=== PATIENT | female | born 1990 | race African-American/Black ===

== ENCOUNTER 2018-07-03 11:03 | Outpatient (CLI) | payer MEDICAID | END 2018-07-03 11:04 | disposition home or self-care (01) | LOC: LAB 11:03 | PROVIDERS: ATTEND Obstetrics & Gynecology | DX: Z32.02 Encounter for pregnancy test, result negative (principal) | CPT/HCPCS: 36415; 84702 ==

== ENCOUNTER 2018-07-05 23:43 | Emergency (ER) | payer MEDICAID ==
[2018-07-05 23:57] VITALS: BP 111/72
[2018-07-06] MEDS ORDERED: PROPARACAINE 0.5% OPHTH DROPS 15 ML RIGHTEYE STA (00:27)
[2018-07-06] MEDS ORDERED: NEOMYCIN/POLYMYX/DEXAMETH OPHTH DROPS 5 ML RIGHTEYE STA (00:38)
--- NOTE | 2018-07-06 00:41 | ED Physician Documentation ---
PD HPI OPHTHO - Stated complaint Stated Complaint: EYE PX - Chief complaint Chief Complaint: Heent - History obtained from History obtained from: Patient, Family - History of Present Illness Timing - onset: Today Timing - duration: Minutes Timing - details: Abrupt onset, Still present Location: Right Quality / character: Throbbing, Sharp Associated symptoms: Redness, Tearing, FB sensation Contributing factors: Other (was flipping her hair around) Similar symptoms before: Has not had sx before Recently seen: Not recently seen - Additional information Additional information: 28-year-old female was flipping her hair around when she hit herself in the right eye. She has pain and a foreign body sensation in the right eye. Review of Systems Constitutional: denies: Fever Eyes: reports: Photophobia, Irritation. denies: Loss of vision, Decreased vision, Discharge Ears: denies: Ear pain Nose: denies: Rhinorrhea / runny nose, Congestion Respiratory: denies: Cough PD PAST MEDICAL HISTORY - Past Medical History Past Medical History: No - Past Surgical History Past Surgical History: No - Present Medications Home Medications: Ambulatory Orders Medication Instructions Recorded Confirmed Neomycin/Poly/Dex Ophth Drops 1 drops RIGHTEYE QID #1 bottle 07/06/18 [Maxitrol Ophth Drops] - Allergies Allergies/Adverse Reactions: Allergies Allergy/AdvReac Type Severity Reaction Status Date / Time No Known Drug Allergies Allergy Verified 07/05/18 23:47 - Social History Does the pt smoke?: Yes Smoking Status: Current every day smoker Does the pt drink ETOH?: Yes Does the pt have substance abuse?: No - Immunizations Immunizations are current?: Yes - POLST Patient has POLST: No PD ED PE NORMAL - Vitals Vital signs reviewed: Yes (normal ) - General General: Alert and oriented X 3, Well developed/nourished, Other (squinting ) - HEENT HEENT: Atraumatic, PERRL, EOMI, Other (There is injection to the sclera on the right and there is fluoroscien uptake on the right in a stife with 3 superficial scratches) - Neck Neck: Supple, no meningeal sign - Respiratory Respiratory: No respiratory distress - Derm Derm: Normal color, Warm and dry, No rash - Extremities Extremities: No deformity, No edema - Neuro Neuro: Alert and oriented X 3, 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 She has a lot of relief with use of the proparacaine eyedrops. She is administered Maxitrol eyedrops and we will refer her to a primary care doctor for follow-up. Departure - Departure Disposition: 01 Home, Self Care Clinical Impression: Corneal abrasion, right Qualifiers: Encounter type: initial encounter Qualified Code(s): S05.01XA - Injury of conjunctiva and corneal abrasion without foreign body, right eye, initial encounter Condition: Stable Instructions: ED Eye Injury Corneal Abrasion Follow-Up: [facility] [Provider Group] Prescriptions: Neomycin/Poly/Dex Ophth Drops [Maxitrol Ophth Drops] 1 drops RIGHTANGELAE QID #1 bottle
== END 2018-07-06 00:47 | disposition home or self-care (01) ==
LOC: ED 23:43
DX: S05.01XA Injury of conjunctiva and corneal abrasion without foreign body, right eye, initial encounter (principal); W22.8XXA Striking against or struck by other objects, initial encounter; F17.200 Nicotine dependence, unspecified, uncomplicated
CPT/HCPCS: 99283; J3490

== ENCOUNTER 2018-09-15 00:16 | Emergency (ER) | payer MEDICAID ==
[2018-09-15 00:22] VITALS: BP 135/70
--- NOTE | 2018-09-15 00:29 | ED Physician Documentation ---
History of Present Illness - Stated complaint Stated Complaint: BURNING SENSATION/NUMB LEGS - Chief complaint Chief Complaint: Ext Problem - History obtained from History obtained from: Patient - History of Present Illness Timing: Prior to arrival - Additonal information Additional information: Patient is a previously healthy 28-year-old female presenting with areas of discomfort and paresthesia to the left medial thigh and bottom of the left foot without inciting injury or trauma. Patient denies recent heavy lifting, strenuous exercise, or other activity that led to discomfort. Patient denies low back pain, pain radiating from back, decrease in strength or range of motion to the extremity.Patient also denies changes in skin such as erythema or rash.No other improving or worsening factors noted. Review of Systems Skin: denies: Rash Musculoskeletal: reports: Extremity pain PD PAST MEDICAL HISTORY - Past Medical History Past Medical History: No - Past Surgical History Past Surgical History: No - Present Medications Home Medications: Ambulatory Orders Medication Instructions Recorded Confirmed Neomycin/Poly/Dex Ophth Drops 1 drops RIGHTEYE QID #1 bottle 07/06/18 [Maxitrol Ophth Drops] - Allergies Allergies/Adverse Reactions: Allergies Allergy/AdvReac Type Severity Reaction Status Date / Time No Known Drug Allergies Allergy Verified 09/15/18 00:22 - Social History Does the pt smoke?: Yes Smoking Status: Current every day smoker Does the pt drink ETOH?: Yes Does the pt have substance abuse?: No - Immunizations Immunizations are current?: Yes - POLST Patient has POLST: No PD ED PE NORMAL - Vitals Vital signs reviewed: Yes - General General: Alert and oriented X 3, No acute distress, Well developed/nourished - Cardiac Cardiac: Strong equal pulses (Cap refill brisk) - Respiratory Respiratory: No respiratory distress - Derm Derm: Normal color, Warm and dry, No rash - Extremities Extremities: No deformity, No tenderness to palpate, No edema, Other (Negative straight leg test to the left leg. Left leg within normal limits with no bony tenderness, deformity, decrease in range of motion, strength, or sensation.No rash or other overlying skin changes except for callus to bottom of left foot otherwise uncomplicated.) - Neuro Neuro: Alert and oriented X 3, No motor deficit, No sensory deficit - Psych Psych: Normal mood, Normal affect Results - Vitals Vitals: Vital Signs - 24 hr 09/15/18 00:18 Temperature 36.1 C L Heart Rate 95 Respiratory 20 Rate Blood Pressure 135/70 H O2 Saturation 100 Oxygen O2 Source Room air PD MEDICAL DECISION MAKING - ED course Complexity details: considered differential, d/w patient, d/w family ED course: Most concerning for sciatica, however, given lack of low back pain, inciting injury or trauma, radiation of discomfort and otherwise dermatomal or lack thereof pattern, do not feel this is likely. Additionally, patient had negative straight leg test on the left side. Patient denied trauma that would raise high suspicion for bony abnormality such as fracture or dislocation. No bony tenderness or other issues on exam. No overlying skin changes such as joint swelling or erythema, rash, abrasions, ecchymosis. Do not find concerns for infection. Patient does have callus to bottom of left foot which could be contributing to discomfort or paresthesia. At this time, do not feel patient is experiencing an emergent condition that would require further intervention but discussed supportive cares, strict return precautions, and appropriate follow- up. Patient voiced understanding and is comfortable with discharge plan. Departure - Departure Disposition: 01 Home, Self Care Clinical Impression: Paresthesia Pain in extremity Qualifiers: Extremity pain location: lower extremity Laterality: left Qualified Code(s): M79.605 - Pain in left leg Condition: Good Instructions: ED Acute Pain [facility]O Follow-Up: your,doctor [Other] Comments: Recommend stretching, massage, ibuprofen/Tylenol and monitoring over the next several days. If symptoms persist or worsen, please follow-up with your primary care physician or return to the ED immediately. May also consider seeking advice from a sales training coordinator.
== END 2018-09-15 00:44 | disposition home or self-care (01) ==
LOC: ED 00:16
DX: R20.2 Paresthesia of skin (principal); M79.652 Pain in left thigh; M79.672 Pain in left foot; L84 Corns and callosities; F17.200 Nicotine dependence, unspecified, uncomplicated
CPT/HCPCS: 99282; 99283

== ENCOUNTER 2018-12-02 10:49 | Outpatient (CLI) | payer MEDICAID ==
--- NOTE | 2018-12-02 15:17 | XRAY Report ---
Reason: L KNEE PAIN Procedure Date: 12/02/2018 Accession Number: [id number] / [id number] Procedure: XRN - Knee 3 View LT CPT Code: FULL RESULT: EXAM: LEFT KNEE RADIOGRAPHY EXAM DATE: 12/02/2018 11:06 AM. CLINICAL HISTORY: L KNEE PAIN. COMPARISON: None. TECHNIQUE: 3 views. FINDINGS: Bones: Normal. No fractures or bone lesions. Joints: Normal. No effusion. No subluxations. Soft Tissues: Normal. No soft tissue swelling. IMPRESSION: Normal knee radiography. RADIA
== END 2018-12-02 10:50 | disposition home or self-care (01) ==
LOC: DI.N 10:49
PROVIDERS: ATTEND Physician Assistant Medical
DX: M25.562 Pain in left knee (principal)

== ENCOUNTER 2019-02-10 11:09 | Outpatient (CLI) | payer MEDICAID ==
[2019-02-10 16:29] VITALS: BP 102/78
--- NOTE | 2019-02-10 16:29 | SLEEP CARE CONSULTATION ---
Information from patient questionnaire entered by Gabi Davison. I have reviewed and concur with the information entered by Gabi Davison. This document represents the service I personally performed and the decisions made by me, Hailey Blanco MD, [facility]. History of Present Illness Reason for Visit: New patient Chief Complaint: reports: Insomnia, Excessive daytime sleepiness Usual bedtime: 0400 Time it takes to fall asleep: hours Snores at night: Yes Sleeps alone due to snoring: No Number of times waking at night: 3 Reasons for waking at night: reports: Pain (on side), Other (can't breath) Toss, Turn, or Twitch while sleeping: Yes Recalls having dreams: No Usually gets out of bed at: 0700 Feels refreshed in the morning: No Morning headache: Yes Sleepy or fatigued during the day: Yes Ever fallen asleep while driving: No Takes day naps: No Dreams during day naps: No Prior sleep studies: No Additional HPI information: I had the pleasure of seeing Ms. Pfeiffer today regarding the possibility of her having a sleep disorder. As you know, she is a 28 year old lady who complains of insomnia for the past 3 years. She moved here a year ago. The patient tells me that she normally goes into her bedroom around 8 pm to start watching TV. She then falls asleep in approximately 40 minutes. She then wakes up and stays up until about 4 am. She has been told that she snores loudly and irregularly at night. She has never been observed to stop breathing in her sleep. Her bed partner can still sleep in the same bed. He wears a CPAP. She can recall waking up on the average of 3 times during the night. Most of the time she wakes up because of pain. She has never awakened because of her own snoring, choking, or having to gasp for air. There is a lot of tossing and turning in her sleep. No somniloquy (sleep talking) or somnambulism (sleep walking). Generally there is no recollection of dreams. In the morning she usually gets up out of the bed around 7 a.m. not feeling refreshed nor rested. She gets up at that time to send her children to school. She usually does have a morning headache. During the day she complains of feeling sleepy and fatigued. Her score on [place] Sleepiness Scale is 13 out of 24. She has never fallen asleep while driving nor has had any accident due to sleepiness. She tries to take naps during the day but ends up unable to fall asleep. She denies having impaired concentration during the day. Subjective Initial [place] Sleepiness Scale score: 13 Social History The patient's occupation is not employed. Patient is Single and lives in [place]. Have you smoked in the past 12 months: Yes Cigarettes per day (20/pack): 5 Years of smokin Smoking Pack Years: 1.4 Alcohol use: No Caffeine use: Yes Caffeine amount and frequency: a lot Family History Family history of sleep disordered breathing: Yes Family Hx Sleep Apnea: Grandparent: Snoring Allergies and Home Medications Known drug allergies: No (none) Drug allergies reviewed: Yes (none) Home medication list reviewed: Yes (none) Review of Systems Weight loss over past 5 years: 35 Cardiovascular: denies: high blood pressure, palpitations, chest pain, irregular heart rate or pulse, leg or foot swelling, have to sleep sitting up, other Respiratory: denies: shortness of breath, wheeze, sputum production, chronic cough, other Gastrointestinal: denies: heartburn, difficulty swallowing, nausea, vomitting, diarrhea, abdominal pain, other Urinary: denies: incontinence, frequency, urgency, impotence, other Neurological: reports: headaches Psychiatric: denies: Attention Deficit Hyperactivity, anxiety, depression, mood disorder, claustrophobia, other Ear/Nose/Throat: denies: nasal congestion, sinus problems, nose bleeds, dry mouth/throat, hoarseness, injury to nose, tonsillectomy, wisdom teeth removed, other Endocrine: denies: thyroid disease, history of goiter, sluggishness, too hot or cold, excessive thirst, increased appetite, increased urination, unexplained weakness, other Musculoskeletal: reports: back pain, muscle pain or cramping Immunologic: denies: sneezing, rash, itching, allergies to food or environment, other Physical Exam Vital signs obtained and entered by: Dr. Blanco Blood Pressure: 102/78 Cuff size: regular Heart Rate: 80 O2 Saturation: 98 Height: 5 ft 5 in Weight: 215 lb Body Mass Index: 35.7 BMI Classification: Obesity Class 2 Neck circumference: 16 Mood/affect: normal HEENT: No craniofacial malformation Nostrils: patent to airflow Turbinates: normal Septum: midline Mouth and throat: narrow oropharynx Soft palate: long Hard palate: normal Uvula: normal Uvula visualization: 100% Mallampati Class I Tongue: enlarged in size with teeth bennett on lateral edges Tonsils: small Chin and jaw: normal size and position Neck: normal w/o lymphadenopathy or thyromegaly Heart: regular rate and rhythm Lungs: clear bilaterally Abdomen: soft, non-tender Extremities: no edema or clubbing Neurologic: intact, no focal deficits Impression and Plan IMPRESSION: 1. Obstructive Sleep Apnea-Hypopnea Syndrome, as suggested by history of loud and irregular snoring, frequent awakenings during the night, morning headache, unrefreshed sleep, and daytime hypersomnolence. Narrow oropharynx and obesity are common predisposing factors for obstructive sleep apnea-hypopnea syndrome. Pathophysiology of sleep-disordered breathing was discussed. I recommend proceeding to polysomnography to confirm the diagnosis and to assess severity. If she has significant sleep disordered breathing, a manual CPAP titration study will also be performed to find the optimal treatment pressure. I informed the patient of what the sleep studies involve and after some discussion, she agreed to proceed. 2. Insomnia, possibly a short sleep made worse by excessive time spent in bed of 11 hours a night (from 8 am to 7 am). She also has the incorrect thinking that she should try to sleep whenever possible. This, of course, ruins the circadian rhythm. She was advised to spend no more than 8 hours in bed. If she gets up at 7 am, she should not go to bed before 11 pm. She should not nap. She should not try to sleep outside of the 8 hour window regardless of how little sleep she gets in that window. Cigarette smoking near bedtime or during the night can be alerting. She should not smoke in the evening. Plan: 1. Schedule polysomnography. 2. Avoid long distance driving or when feeling sleepy. 3. Attempt to lose weight. 4. No cigarettes smoking near bedtime 5. Maintain a regular wake up time and spend no more than 8 hours in bed at night. Avoid naps. 6. Keep sleep diary (provided to the patient). I spent 100% of this 20 minute visit face to face with the patient with greater than 50% of this was spent time counseling the patient and coordination of care.
== END 2019-02-10 11:10 | disposition home or self-care (01) ==
LOC: SC 11:09
PROVIDERS: ATTEND Internal Medicine Pulmonary Disease
DX: G47.10 Hypersomnia, unspecified (principal); G47.8 Other sleep disorders; R06.83 Snoring; R51 Headache; G47.00 Insomnia, unspecified; E66.9 Obesity, unspecified; Z68.35 Body mass index [BMI] 35.0-35.9, adult
CPT/HCPCS: 99203; 99212

== ENCOUNTER → 2019-02-25 | Outpatient (CLI) | payer MEDICAID | LOC: SC 19:30 | PROVIDERS: ATTEND Internal Medicine Pulmonary Disease | DX: G47.10 Hypersomnia, unspecified (principal); R06.83 Snoring | CPT/HCPCS: 95806 ==

== ENCOUNTER 2019-04-01 10:55 | Outpatient (CLI) | payer MEDICAID ==
[2019-04-01 12:27] VITALS: BP 110/66
--- NOTE | 2019-04-01 12:27 | SLEEP CARE CONSULTATION ---
Information from patient questionnaire entered by Gabi Davison. I have reviewed and concur with the information entered by Gabi Davison. This document represents the service I personally performed and the decisions made by me, Leesa Dennis, RN, MSN, [employer]. History of Present Illness Prior sleep studies: Yes Year and Where: 02/2019 [facility] Sleep USP study HPI additional information: ANU JUNIOR returns with partner for follow up of the recently performed home sleep study and informed of the findings. The patient stated the time there was not data in middle of night was when she got to bathroom and did not return to bed to sleep for 1.5 hours. This occurs occasionally. I explained the pathophysiology behind obstructive sleep apnea. Patient does not have sleep apnea and was advised how weight gain could increase the risk of developing sleep apnea in the future. I strongly encouraged the patient to lose weight. However, she just learned she was and has an appointment tomorrow. Patient has moderate snoring and none noted on test. Snoring can be reduced by weight loss. Weight loss is best achieved with diet consult. Snoring can also be treated with an oral appliance from a dentist. Advised to check insurance coverage. In addition, an ENT evaluation can be do to see if other treatment is indicated. Patient counseled not drink alcohol less than 4 hours before bedtime as it can increase snoring and apnea. Patient does not drink alcohol. Patient was cautioned about risks of drowsy driving until sleepiness symptoms resolve. Patient denies drowsy driving. [facility] patient education on snoring and sleep apnea given and reviewed. Review of sleep history reflects that she implemented sleep practices advised by Dr. Blanco. She reports that by regulating her sleep wake time, eliminating naps and reducing time in bed improved her nighttime sleep. She is aware if she naps, she has difficulty sleeping at night. Subjective Initial [place] Sleepiness Scale score: 13 Current [place] Sleepiness Scale score: 9 Allergies and Home Medications Known drug allergies: Yes Home medication list reviewed: Yes Allergy and home medication list: vitamins Review of Systems Review of systems same as previous: Yes Physical Exam Blood Pressure: 110/66 Cuff size: long Heart Rate: 83 O2 Saturation: 98 Weight: 215 lb 9.6 oz Impression and Plan 1. Snoring but no significant sleep disordered breathing. Patient advised that often weight loss will reduce snoring as well as apnea risk. An oral appliance can also be used for snoring. This would require a dental consultation and may not be covered by insurance. Patient cautioned not to use other online appliances as can cause bite issues. An ENT consult can also be used to determine cause. However, since she just found out she was , she is advised to follow up with her PCP for weight guidelines while and then W[employer]ALKER. The BMI chart was reviewed and her current BMI and goals of normal weight. 2. Insomnia, patient feels it is better controlled with current sleep schedule and pleased with benefit. I emphasized keeping a regular sleep schedule, minimizing naps if needed to one hour and before 3 pm and to restrict time in bed to 8 hours. If continued problems with insomnia, contact this office. A sleep diary will be completed for further evaluation. * Attempt to lose weight after . * Avoid alcohol consumption near bedtime * The patient is cautioned about driving until sleepiness is completely resolved. * Return as needed. I spent 100% of this 30 minute visit face to face with the patient with greater than 50% of this was spent time counseling the patient and coordination of care.
== END 2019-04-01 10:56 | disposition home or self-care (01) ==
LOC: SC 10:55
PROVIDERS: ATTEND Nurse Practitioner Family
DX: G47.10 Hypersomnia, unspecified (principal); G47.8 Other sleep disorders; E66.9 Obesity, unspecified; Z68.35 Body mass index [BMI] 35.0-35.9, adult
CPT/HCPCS: 99212; 99214

== ENCOUNTER 2019-04-02 08:00 | Outpatient (CLI) | payer MEDICAID ==
[2019-04-02 19:30] LABS: BILIRUBIN,URINE NEGATIVE (NEGATIVE); GLUCOSE, URINE (UA) NEGATIVE (NEGATIVE); KETONES,URINE (UA) NEGATIVE (NEGATIVE); LEUKOCYTE ESTERASE, URINE MODERATE (NEGATIVE); NITRITE,URINE POSITIVE (NEGATIVE); OCCULT BLOOD,URINE NEGATIVE (NEGATIVE); PH,URINE 6.5 PH (5.0-7.5); PROTEIN,URINE TRACE mg/dL (NEGATIVE); UROBILINOGEN,URINE 0.2 (NORMAL) E.U./dL (NORMAL)
[2019-04-02 19:35] LABS: CLARITY,URINE CLOUDY (CLEAR)
[2019-04-02 19:45] LABS: AMORPHOUS SEDIMENT,UR Marked /LPF; BACTERIA,URINE Many /HPF (None Seen); RBC,URINE 0-5 /HPF (0-5); SQUAMOUS EPITHELIAL CELL,UR FEW Squamous (<= Few)
== END 2019-04-02 23:59 | disposition home or self-care (01) ==
LOC: LAB.R 08:00
PROVIDERS: ATTEND Physician Assistant Medical
DX: N39.0 Urinary tract infection, site not specified (principal)
CPT/HCPCS: 81001; 81003; 87086; 87181

== ENCOUNTER 2019-04-17 12:27 | Outpatient (CLI) | payer MEDICAID ==
--- NOTE | 2019-04-17 14:46 | Ultrasound Report ---
Reason: TEST POSITIVE Procedure Date: 04/17/2019 Accession Number: [id number] / [id number] Procedure: US - OB First Trimester CPT Code: Final Report FULL RESULT: EXAM: FIRST TRIMESTER OBSTETRIC ULTRASOUND (Less than 11 weeks) EXAM DATE: 04/17/2019 01:57 PM. CLINICAL HISTORY: test positive. LMP: 01/29/2019. COMPARISONS: None. TECHNIQUE: Transabdominal and transvaginal ultrasound examination with static image documentation. CLINICAL DATES: EGA 11weeks/1day with JM 11/05/2019 based on LMP. ASSESSMENT: Gestational Sac: Single intrauterine. Mean gestational sac diameter: 49.7 mm = 10 weeks/5 days. Embryo: CRL (crown-rump length) 37.0 mm = 10weeks/4days. Cardiac activity: 170 beats per minute. Yolk sac: 3.3 mm. Amniotic fluid: Not accurately assessed at this gestational age. Early placenta: Posterior placenta. Other: No perigestational fluid collection demonstrated. MATERNAL STRUCTURES: Uterus: Anteverted/Retroverted. Unremarkable. Cervix: Closed. Right Ovary/Adnexa: The ovary measures 2.4 x 1.8 x 1.9 cm, volume 4.3 cc. Unremarkable. Left Ovary/Adnexa: The ovary measures 2.1 x 2.8 x 2.2 cm, volume 6.6 cc. There is a left ovarian corpus luteum cyst, 1.6 x 1.4 x 1.4 cm. Free Fluid: None. Other: None. IMPRESSION: 1. Single viable intrauterine at EGA 10weeks/4days with JM 11/09/2019 based on crown-rump length, which is concordant with clinical dates. 2. Assigned dating is JM 11/05/2019 based on LMP. RADIA
== END 2019-04-17 12:28 | disposition home or self-care (01) ==
LOC: DI 12:27
PROVIDERS: ATTEND Nurse Practitioner Obstetrics & Gynecology
DX: Z32.01 Encounter for pregnancy test, result positive (principal)
CPT/HCPCS: 76801

== ENCOUNTER 2019-04-28 08:00 | Outpatient (CLI) | payer MEDICAID ==
[2019-04-29 14:34] LABS: MUDS CUTOFF CONCENTRATIONS CUTOFF CONC BELOW:
[2019-04-29 15:11] LABS: BILIRUBIN,URINE NEGATIVE (NEGATIVE); GLUCOSE, URINE (UA) NEGATIVE (NEGATIVE); KETONES,URINE (UA) NEGATIVE (NEGATIVE); LEUKOCYTE ESTERASE, URINE SMALL (NEGATIVE); NITRITE,URINE NEGATIVE (NEGATIVE); OCCULT BLOOD,URINE LARGE (NEGATIVE); PH,URINE 6.5 PH (5.0-7.5); PROTEIN,URINE TRACE mg/dL (NEGATIVE); UROBILINOGEN,URINE 0.2 (NORMAL) E.U./dL (NORMAL)
[2019-04-29 15:18] LABS: CLARITY,URINE CLOUDY (CLEAR)
[2019-04-29 15:29] LABS: AMORPHOUS SEDIMENT,UR Moderate /LPF; BACTERIA,URINE Rare /HPF (None Seen); CRYSTALS,URINE 11-25 Ca Oxalate /LPF; RBC,URINE TNTC /HPF (0-5); SQUAMOUS EPITHELIAL CELL,UR MANY Squamous (<= Few)
[2019-04-29 15:31] LABS: AMPHETAMINE SCREEN,URINE NEGATIVE (NEGATIVE); BENZODIAZEPINES SCREEN, URINE NEGATIVE (NEGATIVE); COCAINE SCREEN URINE NEGATIVE (NEGATIVE); METHADONE SCREEN, URINE NEGATIVE (NEGATIVE); METHAMPHETAMINES SCREEN, URINE NEGATIVE (NEGATIVE); OPIATE SCREEN, URINE NEGATIVE (NEGATIVE); OXYCODONE SCREEN, URINE NEGATIVE (NEGATIVE); PROPOXYPHENE SCREEN, URINE NEGATIVE (NEGATIVE); TRICYCLIC ANTIDEPRESSANT,URINE NEGATIVE (NEGATIVE)
[2019-04-29 19:36] LABS: TRICHOMONAS VAGINALIS DNA POSITIVE (NEGATIVE)
== END 2019-04-28 23:59 | disposition home or self-care (01) ==
LOC: LAB.R 08:00
PROVIDERS: ATTEND Obstetrics & Gynecology
DX: Z36.89 Encounter for other specified antenatal screening (principal)
CPT/HCPCS: 80306; 81001; 87086; 87491; 87591; 87661

== ENCOUNTER 2019-06-02 07:00 | Outpatient (CLI) | payer MEDICAID ==
[2019-06-03 21:55] LABS: TRICHOMONAS VAGINALIS DNA NEGATIVE (NEGATIVE)
== END 2019-06-02 23:59 | disposition home or self-care (01) ==
LOC: LAB.R 07:00
PROVIDERS: ATTEND Obstetrics & Gynecology
DX: Z11.3 Encounter for screening for infections with a predominantly sexual mode of transmission (principal)
CPT/HCPCS: 87491; 87591; 87661

== ENCOUNTER 2019-06-02 16:27 | Outpatient (CLI) | payer MEDICAID ==
[2019-06-02 17:17] LABS: HB2 TOTAL 11.4 g/dL; HEMOGLOBIN A1C 0.44 g/dL; HEMOGLOBIN A1C % 5.7 % (4.6-6.2)
[2019-06-02 17:35] LABS: THYROID STIMULATING HORMONE 1.13 uIU/mL (0.34-5.60)
[2019-06-02 17:37] LABS: FREE T4 (FREE THYROXINE) 0.73 ng/dL (0.58-1.64)
== END 2019-06-02 16:28 | disposition home or self-care (01) ==
LOC: LAB 16:27
PROVIDERS: ATTEND Obstetrics & Gynecology
DX: Z34.80 Encounter for supervision of other normal pregnancy, unspecified trimester (principal); Z36.0 Encounter for antenatal screening for chromosomal anomalies; Z36.89 Encounter for other specified antenatal screening
CPT/HCPCS: 36415; 81511; 81599; 82306; 83036; 84439; 84443

== ENCOUNTER 2019-06-19 10:35 | Outpatient (CLI) | payer MEDICAID ==
--- NOTE | 2019-06-22 15:28 | Ultrasound Report ---
Reason: SUPERVISION OF NORMAL SECOND TRIMESTER Procedure Date: 06/19/2019 Accession Number: [id number] / [id number] Procedure: US - OB Detailed Eval CPT Code: Final Report FULL RESULT: EXAM: COMPLETE OBSTETRICAL ULTRASOUND EXAM DATE: 06/19/2019 11:01 AM. CLINICAL HISTORY: anatomic survey. COMPARISON: OB FIRST TRIMESTER 04/17/2019 12:45 PM. TECHNIQUE: Real-time sonographic evaluation of the fetus performed by the anatomy professor. Multiple medical field representative static images were saved for review. DATING: Established EGA 19 weeks 4 days with JM 11/09/2019 based on first ultrasound as working due date. EGA 19 weeks 5 days with JM 11/08/2019 based on the current ultrasound. GENERAL EVALUATION Brown . Cardiac activity: 157 bpm. movement: Visualized. Presentation: Cephalic. Placenta: Posterior position. No evidence for previa. Umbilical cord: 3 vessel cord. Marginal, less than 1 cm from placental edge, placental cord origin. Amniotic fluid: Subjectively normal. MVP 3.4 cm with GONZALO 11.3 cm. BIOMETRY Bi-Parietal Diameter (BPD): 4.6 cm, 19 weeks 6 days Head Circumference (HC): 16.5 cm, 19 weeks 1 day Abdominal Circumference (AC): 15.1 cm, 20 weeks 2 days Femur Length (FL): 3.1 cm, 19 weeks 5 days Estimated Weight: 324 g, 69th percentile for 19 weeks 4 days. ANATOMY The right ventricular outflow tract is not adequately visualized. The left ventricular outflow tract appears unremarkable. The intracranial structures, profile, face/nose/lips, spine, 4 chamber heart, stomach, abdominal wall and cord insertion, diaphragm, kidneys, bladder, and extremities were visualized and demonstrate no abnormality. MATERNAL STRUCTURES Uterus: Unremarkable. Cervix: Long and closed. Transabdominal length 3.9 cm. Right ovary/adnexa: Unremarkable. Left ovary/adnexa: Unremarkable. Free fluid: None. IMPRESSION: 1. Brown live intrauterine with gestational age 19 weeks 4 days based on first ultrasound. 2. Estimated weight is within expected limits for assigned dating. 3. Marginal placental cord origin. Recommend follow-up ultrasound for growth assessment and to evaluate for progression to velamentous cord origin at 28-32 weeks gestational age. 4. Inadequate visualization of the right ventricular outflow tract. No anatomic abnormalities are detected at this time. RADIA
== END 2019-06-19 10:36 | disposition home or self-care (01) ==
LOC: DI 10:35
PROVIDERS: ATTEND Obstetrics & Gynecology
DX: Z34.82 Encounter for supervision of other normal pregnancy, second trimester (principal)
CPT/HCPCS: 76811

== ENCOUNTER 2019-06-30 14:26 | Outpatient (CLI) | payer MEDICAID ==
[2019-06-30 15:04] LABS: BASOPHILS % (AUTO) 0.1 %; EOSINOPHILS # (AUTO) 0.2 10^3/uL (0.0-0.7); EOSINOPHILS % (AUTO) 2.1 %; HGB - HEMOGLOBIN 11.2 g/dL (12.0-16.0); LYMPHOCYTES # (AUTO) 2.5 10^3/uL (1.5-3.5); LYMPHOCYTES % (AUTO) 32.4 %; MEAN CORPUSCULAR HGB CONC 33.9 g/dL (32.0-36.0); MEAN CORPUSCULAR VOLUME 91.4 fL (81.0-99.0); MEAN PLATELET VOLUME 9.1 fL (7.9-10.8); MONOCYTES # (AUTO) 0.4 10^3/uL (0.0-1.0); MONOCYTES % (AUTO) 4.8 %; NEUTROPHILS # (AUTO) 4.7 10^3/uL (1.5-6.6); PLT - PLATELET COUNT 230 10^3/uL (130-450); RED BLOOD COUNT 3.61 10^6/uL (4.20-5.40); RED CELL DISTRIBUTION WIDTH 13.2 % (12.0-15.0); WHITE BLOOD COUNT 7.8 x10^3/uL (4.8-10.8)
[2019-07-01 12:25] LABS: HEPATITIS C ANTIBODY NON-REACTIVE (NON-REACTIVE)
[2019-07-01 12:26] LABS: HEPATITIS B SURFACE ANTIGEN NON-REACTIVE (NON-REACTIVE)
[2019-07-01 14:15] LABS: HIV AG/AB 4TH GEN NON-REACTIVE (NON-REACTIVE)
== END 2019-06-30 14:27 | disposition home or self-care (01) ==
LOC: LAB 14:26
PROVIDERS: ATTEND Obstetrics & Gynecology
DX: Z36.89 Encounter for other specified antenatal screening (principal)
CPT/HCPCS: 36415; 81599; 85025; 86592; 86762; 86803; 86850; 86900; 86901; 87340; 87389

== ENCOUNTER 2019-07-16 13:12 | Outpatient (CLI) | payer MEDICAID ==
--- NOTE | 2019-07-16 15:58 | Ultrasound Report ---
Reason: SUPER OF NORMAL PREG Procedure Date: 07/16/2019 Accession Number: [id number] / [id number] Procedure: US - OB F/U or Repeat CPT Code: Final Report FULL RESULT: EXAM: FOLLOW-UP OBSTETRICAL ULTRASOUND EXAM DATE: 07/16/2019 02:19 PM. CLINICAL HISTORY: Follow-up incomplete anatomy screen: RVOT, marginal placental origin COMPARISON: None. TECHNIQUE: Real-time sonographic evaluation of the fetus performed by the licensed nurse practitioner. Additional transvaginal imaging to more accurately evaluate cervical length/placental position/etc. Multiple litigation claim representative static images were saved for review. DATING: Established EGA 23 weeks 3 days with JM 11/09/2019 based on provider stated due date. GENERAL EVALUATION Brown . Cardiac activity: 153 bpm. movement: Visualized. Presentation: Cephalic. Placenta: Posterior position. Amniotic fluid: Normal. GONZALO 12.4 cm. MVP 4.8 cm. Placental cord origin is 1.5 cm from placental edge ANATOMY RVOT is normal IMPRESSION: 1. Brown live intrauterine with gestational age 23 weeks 3 days based on provider stated due date. 2. RVOT is normal 3. Eccentric placental cord origin which is 1.5 cm from the placental edge. (Previously marginal less than 1 cm from edge) RADIA
== END 2019-07-16 13:13 | disposition home or self-care (01) ==
LOC: DI 13:12
PROVIDERS: ATTEND Obstetrics & Gynecology
DX: Z34.82 Encounter for supervision of other normal pregnancy, second trimester (principal)
CPT/HCPCS: 76816

== ENCOUNTER 2019-08-08 12:44 | Outpatient (CLI) | payer MEDICAID ==
[2019-08-08 13:15] LABS: BILIRUBIN,URINE NEGATIVE (NEGATIVE); GLUCOSE, URINE (UA) NEGATIVE (NEGATIVE); KETONES,URINE (UA) NEGATIVE (NEGATIVE); LEUKOCYTE ESTERASE, URINE NEGATIVE (NEGATIVE); NITRITE,URINE NEGATIVE (NEGATIVE); OCCULT BLOOD,URINE NEGATIVE (NEGATIVE); PROTEIN,URINE NEGATIVE (NEGATIVE); UROBILINOGEN,URINE 0.2 (NORMAL) E.U./dL (NORMAL)
[2019-08-08 13:18] LABS: CLARITY,URINE CLEAR (CLEAR)
[2019-08-08 13:19] LABS: BACTERIA,URINE None Seen /HPF (None Seen); RBC,URINE None Seen /HPF (0-5); SQUAMOUS EPITHELIAL CELL,UR NONE SEEN (<= Few)
[2019-08-08 13:22] VITALS: BP 112/73
--- NOTE | 2019-08-08 13:58 | PROVIDER PROGRESS NOTE ---
- HPI Chief Complaint: Other (29yo at 26 6/7 weeks by LMP c/w first trimester scan presents with c/o sharp/pulling periumbilical pain. Noticed it today while at the store moving around. Self-limiting, lasting 10 seconds, has occurred a few times today. No contractions, no fluid leak or bleeding. Normal activity. Has continued to have nausea, occasional vomiting throughout . No fever. Regular daily BM, no diarrhea or constipation. PN History/ x2, laparoscopic salpingectomy for ectopic Preg complicated by maternal obesity, prev , anemia, nausea/vomiting, tobacco use, sleep apnea) Current : Current EDU 11/08/19 Gestation 26 Weeks and 6 Days 4 Para 2 Vital Signs Temperature 97.5 F L 08/08/19 13:15 Heart Rate 97 08/08/19 13:15 Respiratory Rate 18 08/08/19 13:15 Blood Pressure 112/73 08/08/19 13:15 O2 Saturation 100 08/08/19 13:15 Temperature 97.5 F L 08/08/19 13:15 Heart Rate 97 08/08/19 13:15 Respiratory Rate 18 08/08/19 13:15 Blood Pressure 112/73 08/08/19 13:15 O2 Saturation 100 08/08/19 13:15 - Procedures OB Procedure Performed: NST Diagnosis/Indication for NST: Other (Abdominal pain; see HPI) Service Date of procedure: 08/08/19 Procedure Details: US also done; Single active fetus in oblique lie w head in RLQ. Posterior fundal placenta. Normal amniotic fluid volume. Abd soft, non-tender. No contractions. Unable to elicit pain. Normal bowel sounds No CVA tenderness. UA sl concentrated sp gr 1.025, otherwise normal - Plan Plan: 29yo at 26 6/7 weeks with pain likely secondary to adhesions from previous surgery. No evidence of other intrauterine or intraabdominal process. Discussed posture, exercises and belly bra to alleviate this and minor low back pain. Glucola and CBC due now, will do both while here. Reassured. F/U as scheduled with primary OB provider.
[2019-08-08 15:03] LABS: BASOPHILS # (AUTO) 0.1 10^3/uL (0.0-0.1); BASOPHILS % (AUTO) 0.5 %; EOSINOPHILS # (AUTO) 0.2 10^3/uL (0.0-0.7); EOSINOPHILS % (AUTO) 1.5 %; HGB - HEMOGLOBIN 10.1 g/dL (12.0-16.0); LYMPHOCYTES # (AUTO) 2.2 10^3/uL (1.5-3.5); LYMPHOCYTES % (AUTO) 18.9 %; MEAN CORPUSCULAR HEMOGLOBIN 30.7 pg (27.0-31.0); MEAN CORPUSCULAR HGB CONC 32.7 g/dL (32.0-36.0); MEAN CORPUSCULAR VOLUME 93.9 fL (81.0-99.0); MEAN PLATELET VOLUME 8.4 fL (7.9-10.8); MONOCYTES # (AUTO) 0.7 10^3/uL (0.0-1.0); MONOCYTES % (AUTO) 5.9 %; NEUTROPHILS # (AUTO) 8.4 10^3/uL (1.5-6.6); NEUTROPHILS % (AUTO) 72.1 %; PLT - PLATELET COUNT 273 10^3/uL (130-450); RED BLOOD COUNT 3.29 10^6/uL (4.20-5.40); RED CELL DISTRIBUTION WIDTH 13.5 % (12.0-15.0); WHITE BLOOD COUNT 11.6 x10^3/uL (4.8-10.8)
== END 2019-08-08 15:00 | disposition home or self-care (01) ==
LOC: WFO 12:44 → FBP 12:52 → WFO 15:00
PROVIDERS: ATTEND Obstetrics & Gynecology
DX: O99.89 Other specified diseases and conditions complicating pregnancy, childbirth and the puerperium (principal); R10.815 Periumbilic abdominal tenderness; M54.5 Low back pain; O99.212 Obesity complicating pregnancy, second trimester; O34.219 Maternal care for unspecified type scar from previous cesarean delivery; O99.332 Smoking (tobacco) complicating pregnancy, second trimester; O21.2 Late vomiting of pregnancy; O99.012 Anemia complicating pregnancy, second trimester; O99.352 Diseases of the nervous system complicating pregnancy, second trimester; G47.30 Sleep apnea, unspecified; Z3A.26 26 weeks gestation of pregnancy
CPT/HCPCS: 81001; 82731; 82950; 85025; 87086; 99214

== ENCOUNTER 2019-10-13 11:42 | Outpatient (CLI) | payer MEDICAID ==
[2019-10-13 21:52] LABS: TRICHOMONAS VAGINALIS DNA NEGATIVE (NEGATIVE)
== END 2019-10-13 23:59 | disposition home or self-care (01) ==
LOC: LAB.R 11:42
PROVIDERS: ATTEND Obstetrics & Gynecology
DX: Z36.85 Encounter for antenatal screening for Streptococcus B (principal)
CPT/HCPCS: 87491; 87591; 87661; 87797

== ENCOUNTER 2019-10-27 04:14 | Inpatient (IN) | payer MEDICAID ==
--- NOTE | 2019-10-27 04:35 | HISTORY & PHYSICAL EXAMINATION ---
Admit History - Visit Reason Visit Reason: Contractions (29yo at 38w22d by LMP c/w first trimester scan who presents with trickle then gush of clear fluid at 0300 today. Also notes painful contractions q4-6 minutes. No bleeding. No n/v/f/c or dysuria. Reports normal activity.), Membranes rupture - : 4 Parity: 2 Premature: 0 Ectopic: 1 : 0 Care: positive: [facility] Risk/History: positive: Other (Previous x2, anemia, obesity, tobacco/marijuana use) Complications This : positive: Other (Previous x2, anemia, obesity, tobacco/marijuana use, excessive weight gain ~80 pounds. Trich infection treated) Smoking Status: Current every day smoker - Mother's Labs Mother's Blood Type: positive: B Mother's RH: positive: Positive (HepB/HIV/RPR/HepC NR Varicella non-immune Glucola 100 GC/chlam neg) GBS: positive: Group B Strep Positive Rubella Status: positive: Immune Meds/Allgy - Home Medications Home Medications: Ambulatory Orders Medication Instructions Recorded Confirmed Pnv No.121/Iron/Folic Acid 1 each PO DAILY 06/28/19 10/27/19 [ Multivitamin Tablet] Ferrous Gluconate [Iron] 240 mg PO DAILY 10/27/19 10/27/19 - Allergies Allergies/Adverse Reactions: Allergies Allergy/AdvReac Type Severity Reaction Status Date / Time No Known Drug Allergies Allergy Verified 06/28/19 11:28 Review of Systems - All Other Systems All Other Systems: reports: Other (Negative except as noted) Physical - Abdominal Exam Contraction Frequency (min/apart): q4-6 Contraction Intensity: positive: Moderate to strong Uterine Resting Tone: positive: Soft - Monitoring Strip Review: positive: Category I - Presentation Presentation: positive: Vertex (by bedside scan, anterior fundal placenta) - Vaginal Exam Membranes: positive: Membranes ruptured Dilation (in cm): visually closed, long Plan for Labor - Plan For Labor Plan for Labor: 29yo at 38w2d GBS+, B+ presents with PROM, a few contractions q4-6, moderate to strong, h/o x2. Vtx by scan Start ampi for GBS complicated by morbid obesity and excessive weight gain, anemia, tobacco/marijuana use, trich infection Plan CBC, T&S Pre-op abx Proceed with repeat LTCS Exam - Exam Vital Signs: Vital Signs (72 hours) 10/27/19 04:36 Temperature 98.4 F Heart Rate [ 98 Monitoring electrodes] Respiratory 18 Rate Blood Pressure 123/76 [Left Brachial artery] O2 Saturation 100 General: Alert, Oriented x3, Cooperative Lungs: Clear to auscultation Cardiovascular: Regular rate, No murmurs Abdomen: Normal bowel sounds, Soft (gravid, obese. Well healed low transverse scar) Extremities: No clubbing (1+ edema) Skin: No rashes Neurological: Normal speech Psych/Mental Status: Mental status NL
[2019-10-27] MEDS ORDERED: fentaNYL 100 MCG/2 ML VIAL IVP PRN (04:40)
[2019-10-27] MEDS ORDERED: OXYTOCIN 10 UNIT/ML VIAL IM PRN (04:40)
[2019-10-27] MEDS ORDERED: AMPICILLIN 2 GM in SODIUM CHLORIDE 0.9% MINIBAG 100 ML IV ONE (04:40)
[2019-10-27] MEDS ORDERED: ONDANSETRON 4 MG/2 ML VIAL IVP PRN (04:40)
[2019-10-27] MEDS ORDERED: OXYTOCIN/SODIUM CHLORIDE 500 ML IV PRN ×2 (04:40)
[2019-10-27] MEDS ORDERED: miSOPROStoL 200 MCG TABLET BC PRN (04:40)
[2019-10-27] MEDS ORDERED: SODIUM CHLORIDE FLUSH 0.9% 10 ML SYRINGE IVP PRN ×2 (04:40→07:47)
[2019-10-27] MEDS ORDERED: TRANEXAMIC ACID 1,000 MG in SODIUM CHLORIDE 0.9% 100ML 100 ML IV PRN (04:40)
[2019-10-27] MEDS ORDERED: LIDOCAINE-MPF 1% 30 ML VIAL ID PRN (04:40)
[2019-10-27] MEDS ORDERED: METHYLERGONOVINE 0.2 MG/ML VIAL IM PRN (04:40)
[2019-10-27] MEDS ORDERED: CARBOPROST TROMETHAMINE 250 MCG/ML AMP IM PRN (04:40)
[2019-10-27] MEDS ORDERED: LACTATED RINGERS 1,000 ML IV ONE ×3 (04:43→07:32)
[2019-10-27] MEDS ORDERED: CITRIC ACID/SODIUM CITRATE 15 ML UDC PO ONE ×2 (04:43→05:28)
[2019-10-27] MEDS ORDERED: ceFAZolin 3 GM in SODIUM CHLORIDE 0.9% 100ML 100 ML IV ONE (04:44)
[2019-10-27] MEDS ORDERED: AZITHROMYCIN INJ 500 MG in SODIUM CHLORIDE 0.9% 250 ML IV ONE (04:46)
[2019-10-27 04:49] LABS: BASOPHILS % (AUTO) 0.4 %; EOSINOPHILS # (AUTO) 0.1 10^3/uL (0.0-0.7); EOSINOPHILS % (AUTO) 1.2 %; HGB - HEMOGLOBIN 11.7 g/dL (12.0-16.0); LYMPHOCYTES # (AUTO) 2.3 10^3/uL (1.5-3.5); LYMPHOCYTES % (AUTO) 21.3 %; MEAN CORPUSCULAR HEMOGLOBIN 31.1 pg (27.0-31.0); MEAN CORPUSCULAR HGB CONC 33.6 g/dL (32.0-36.0); MEAN CORPUSCULAR VOLUME 92.6 fL (81.0-99.0); MEAN PLATELET VOLUME 9.4 fL (7.9-10.8); MONOCYTES # (AUTO) 0.6 10^3/uL (0.0-1.0); MONOCYTES % (AUTO) 5.7 %; NEUTROPHILS # (AUTO) 7.5 10^3/uL (1.5-6.6); NEUTROPHILS % (AUTO) 70.7 %; PLT - PLATELET COUNT 271 10^3/uL (130-450); RED BLOOD COUNT 3.76 10^6/uL (4.20-5.40); RED CELL DISTRIBUTION WIDTH 14.6 % (12.0-15.0); WHITE BLOOD COUNT 10.6 x10^3/uL (4.8-10.8)
[2019-10-27] MEDS ORDERED: LACTATED RINGERS 1,000 ML IV SCH (05:00)
--- NOTE | 2019-10-27 05:09 | ANESTHESIA ---
Pre-Anesthesia VS, & Labs - Diagnosis PG - Procedure Vital Signs: Temp Pulse Resp BP Pulse Ox 36.9 C 98 18 123/76 100 10/27/19 04:36 10/27/19 04:36 10/27/19 04:36 10/27/19 04:36 10/27/19 04:36 Height 5 ft 5 in Weight (kg) 113.398 kg Body Mass Index 36.6 - NPO >8 hours - Is Patient ?: Yes - Lab Results Current Lab Results: Laboratory Tests 10/27/19 04:34: WBC 10.6, RBC 3.76 L, Hgb 11.7 L, Hct 34.8 L, MCV 92.6, MCH 31.1 H, MCHC 33.6, RDW 14.6, Plt Count 271, MPV 9.4, Neut # (Auto) 7.5 H, Lymph # (Auto) 2.3, [place] # (Auto) 0.6, Eos # (Auto) 0.1, Baso # (Auto) 0.0, Absolute Nucleated RBC 0.00, Nucleated RBC % 0.0 Lab results reviewed: Yes Fish Bones: 10/27/19 04:34 Home Medications and Allergies Home Medications: Ambulatory Orders Ferrous Gluconate [Iron] 240 mg PO DAILY 10/27/19 Active Medications Carboprost Tromethamine (Hemabate) 250 mcg IM Q15M PRN PRN Reason: Step 4: Hemorrhage protocol Stop: 10/29/19 04:41 Fentanyl (Fentanyl) 50 mcg IVP Q1H PRN PRN Reason: PAIN Lactated Ringer's (Lr) 1,000 mls @ 999 mls/hr IV .Q1H1M VIKAS Oxytocin/Sodium Chloride (Pitocin/Sodium Chloride) 500 mls @ 999 mls/hr IV PRN PRN; Protocol PRN Reason: POST- HEMORR PREVENTION Stop: 10/29/19 04:41 Tranexamic Acid 1,000 mg/ (Sodium Chloride) 110 mls @ 660 mls/hr IV ONCE PRN PRN Reason: EBL >1200mL and within 3hr Stop: 10/29/19 04:41 Ampicillin Sodium 2 gm/ Sodium (Chloride) 100 mls @ 100 mls/hr IV ONCE ONE Stop: 10/27/19 05:39 Cefazolin Sodium 3 gm/ Sodium (Chloride) 100 mls @ 200 mls/hr IV ONCE ONE Stop: 10/27/19 05:13 Azithromycin 500 mg/ Sodium (Chloride) 250 mls @ 250 mls/hr IV ONCE ONE Stop: 10/27/19 05:45 Lidocaine HCl (Xylocaine-Mpf 1% Vial) 30 ml ID ONCE PRN PRN Reason: PERINEAL REPAIR Stop: 10/29/19 04:41 Methylergonovine Maleate (Methergine Inj) 0.2 mg IM ONCE PRN PRN Reason: Step 2: Hemorrhage protocol Stop: 10/29/19 04:41 Misoprostol (Cytotec) 800 mcg BC ONCE PRN PRN Reason: Step 3: Hemorrhage protocol Stop: 10/29/19 04:41 Ondansetron HCl (Zofran Inj) 4 mg IVP Q4H PRN PRN Reason: Nausea / Vomiting Oxytocin (Pitocin) 10 unit IM ONCE PRN PRN Reason: Step one: If no IV access Stop: 10/29/19 04:41 Sodium Chloride (Normal Saline Flush 0.9%) 10 ml IVP PRN PRN PRN Reason: NEEDED PER PROVIDER ORDERS Sodium Chloride (Normal Saline Flush 0.9%) 10 ml IVP 0100,0900,1700 VIKAS Pnv No.121/Iron/Folic Acid [ Multivitamin Tablet] 1 each PO DAILY 06/28/19 Ferrous Gluconate [Iron] 240 mg PO DAILY 10/27/19 Allergies/Adverse Reactions: Allergies Allergy/AdvReac Type Severity Reaction Status Date / Time No Known Drug Allergies Allergy Verified 06/28/19 11:28 Anes History & Medical History - Anesthetic History Anesthesia Complications: reports: No previous complications Family history of Anesthesia Complications: Denies Family history of Malignant Hyperthermia: Denies - Medical History Cardiovascular: reports: None Pulmonary: reports: None Gastrointestinal: reports: None Urinary: reports: None Neuro: reports: None Musculoskeletal: reports: None Endocrine/Autoimmune: reports: None Blood Disorders: reports: None Skin: reports: None Smoking Status: Current every day smoker - Surgical History Gynecologic: section - Obstetrical History : 4 Parity: 2 Events: positive: Other (Previous x2, anemia, obesity, tobacco/marijuana use) Complications: positive: Other (Previous x2, anemia, obesity, tobacco/marijuana use, excessive weight gain ~80 pounds. Trich infection treated) Exam General: Alert, Oriented x3, Cooperative Dental: WNL Mouth Openin Fingerbreadth Neck Mobility: Normal Mallampati classification: II Thyromental Distance: 4-6 cm Respiratory: Lungs clear Cardiovascular: Regular rate Plan Anesthesia Type: General, Spinal Consent for Procedure(s) Verified and Reviewed: Yes Code Status: Attempt Resuscitation ASA classification: 2-Mild systemic disease Is this case an emergency?: Yes
--- NOTE | 2019-10-27 05:30 | OPERATIVE REPORT ---
Operative Report - General Admit Date: 10/27/19 Procedure Date: 10/27/19 Planned Procedure: Repeat LTCS Pre-Op Diagnosis: at 38w2d with PROM, previous x2 Procedure Performed: Repeat LTCS Post Op Diagnosis: Same - Procedure Note Primary Surgeon: Aileen Ashraf MD Secondary Surgeon: Adelita Posey CNM Anesthesia Provider: Sai Saez CRNA Anesthesia Technique: Local, Spinal Pathology: Cord blood IV Fluids (mL): 1,400 Estimated Blood Loss (mL): 600 Urine Output (mL): 150 Indications: Previous with PROM in early labor Findings: 3126gm male fetus delivered from vertex presentation at 06:29, apgars 9/9. Surgically absent right tube, otherwise normal uterus, adnexae. Complications: None - Other Other Information/Narrative: Patient was brought to the operating room where spinal anesthesia was induced. A urinary garzon and SCD's were placed. She received ancef 3g and azithromycin 500mg. Her vagina was prepped. She was placed in the supine position with leftward tilt her pannus was taped up and she was prepped. Ioban was placed and then she was draped in usual fashion. 20cc 1% lidocaine local was injected prior to making the incision. A low transverse incision was made along the old scar and this was carried to fascia with the Bovie. The fascia was incised and this was extended laterally. The upper margin was elevated and dissected free from the underlying rectus with the Bovie. The same was done at the inferior margin. The rectus muscle was bluntly divided and the peritoneum entered at the upper margin of the opening. This was extended with direct visualization of the bladder. The tissues were noted to be dense with obliteration of tissue planes. The Brennon retractor was placed. The uterus was carefully opened at the midline in the lower segment. This was extended laterally bluntly in a cephalo-caudad manner. The head was elevated into the hysterotomy and delivered using fundal pressure. The cord was clamped and cut and the baby handed off the field. Spontaneous, vigorous cry was noted. The margins of the hysterotomy were clamped. The placenta was delivered intact with traction. A right uterine artery laceration was noted and this was secured with 0 vicryl in a figure of eight fashion. The incision was closed first with 0 vicryl in a running locked fashion, then in a horizontal imbricating fashion with the same suture. Good hemostasis was observed. The right tube was surgically absent, the adnexae were otherwise normal. The retractor was removed. The rectus was reapproximated with several 2-0 vicryl sutures in a figure of eight fashion. The fascia was closed with two 0 vicryl sutures in continuous fashion tied in the middle. The subcutaneous tissues were closed with 3-0 vicryl in an running fashion. A subcuticular stitch of 4-0 monocryl was placed and the skin was closed with dermabond. Steristrips were placed. I performed the entire procedure with the necessary assistance of Adelita Posey.
--- NOTE | 2019-10-27 05:34 | DELIVERY NOTE ---
Delivery Note - Labor Labor: positive: Spontaneous - Delivery Method Delivery Method: positive: Repeat - Presentation Presentation: positive: Vertex, DEBORA - right occiput anterior - Nuchal Cord Nuchal Cord: positive: None - Anesthetic Anesthetic Type: - Amniotic Fluid Description Amniotic Fluid Description: positive: Clear - Delivery Outcome Delivery Outcome: positive: Livebirth - [place] sex: positive: Male : 3126gm, apgars 9/9 - Cord Cord: positive: 3 vessels - Placenta Placenta: positive: Intact, Spontaneous, Expressed - Estimated Blood Loss Estimated Blood Loss (in cc): 600 - Post Delivery Events Post Delivery Events: positive: No post delivery events - Delivery Comments (Free Text/Narrative) Delivery Comments (Free Text/Narrative): 3126gm male infant apgars 9/9 delivered from vertex at 06:29 on 10/27/19. Otherwise see operative report.
[2019-10-27] MEDS: LACTATED RINGERS 1,000 ML IV ONE (06:09)
[2019-10-27] MEDS: LIDOCAINE 1%-EPI 1:100000 20 ML MDV ONE ×2 (06:09→06:15)
[2019-10-27] MEDS: KETOROLAC 30 MG/ML VIAL IVP SCH ×3 (07:03→20:19)
[2019-10-27] MEDS ORDERED: SIMETHICONE CHEW 80 MG TABLET PO PRN (07:47)
[2019-10-27] MEDS ORDERED: diphenhydrAMINE 25 MG CAPSULE PO PRN (07:47)
[2019-10-27] MEDS ORDERED: diphenhydrAMINE INJ 50 MG/ML VIAL IVP PRN (07:47)
[2019-10-27] MEDS ORDERED: ACETAMINOPHEN 500 MG TABLET PO SCH (08:00)
[2019-10-27] MEDS: LACTATED RINGERS 1,000 ML IV SCH ×4 (08:50→17:18)
[2019-10-27] MEDS ORDERED: FERRIC GLUCONATE IV ONE (09:00)
[2019-10-27] MEDS ORDERED: SODIUM CHLORIDE 0.9% IV ONE (09:00)
[2019-10-27] MEDS ORDERED: SODIUM CHLORIDE FLUSH 0.9% 10 ML SYRINGE IVP SCH (09:00)
[2019-10-27] MEDS: ACETAMINOPHEN 325 MG TABLET PO SCH ×2 (12:08→20:20)
[2019-10-27] MEDS: DOCUSATE SODIUM 100 MG CAPSULE PO SCH (12:08)
[2019-10-27] MEDS: NICOTINE 14 MG PATCH TOP SCH (12:33)
--- NOTE | 2019-10-27 12:45 | PROVIDER PROGRESS NOTE ---
Subjective - Prog Note Date Prog Note Date: 10/27/19 Prog Note Time: 12:41 - Subjective Subjective: Post op check. Very comfortable. No further nausea. Scant lochia. Starting to breastfeed. Not ambulating yet. VSS afeb UO borderline 30-60cc/hr first 3 hours; last hour 175cc clear urine Abd soft, non-tender. Fundus firm below umbilicus. Incision D&I, steris in place. EXT/ SCDs in place A/P Stable. UO improving with increased fluids. Continue to monitor. Start lovenox for DVT prophylaxis. Continue routine postop care. Objective - Vital Signs/Intake & Output Vital Signs: Vital Signs x48h Temp Pulse Pulse Resp BP BP Pulse Ox 10/27/19 12:00 96.4 F L 90 18 110/67 99 10/27/19 11:31 84 16 113/67 100 10/27/19 11:00 83 16 114/71 99 10/27/19 10:35 96.3 F L 81 18 109/72 100 10/27/19 10:15 82 100 10/27/19 10:00 70 16 106/56 L 100 10/27/19 09:45 70 18 110/68 97 10/27/19 09:32 68 16 108/71 98 10/27/19 09:17 82 20 115/66 99 10/27/19 09:02 73 18 113/74 99 10/27/19 08:47 82 16 105/59 L 100 10/27/19 08:32 91 16 110/52 L 100 10/27/19 08:17 97.5 F L 79 12 106/63 99 10/27/19 08:05 97.7 F 82 17 105/68 97 10/27/19 08:00 97.7 F 92 16 111/52 L 97 10/27/19 07:55 97.2 F L 94 15 105/67 100 10/27/19 07:50 89 18 127/102 H 100 10/27/19 07:45 86 14 117/60 99 10/27/19 07:40 90 14 125/77 100 10/27/19 07:34 96.8 F L 86 14 127/70 99 Intake & Output: Intake & Output 10/24/19 10/25/19 10/26/19 10/27/19 23:59 23:59 23:59 23:59 Intake Total 7127.667 Output Total 355 Balance 1736.667 - Lab Results Fish Bones: 10/27/19 04:34 Other Labs: Lab Results x24hrs 10/27/19 10/27/19 Range/Units 04:34 04:34 WBC 10.6 (4.8-10.8) x10^3/uL RBC 3.76 L (4.20-5.40) 10^6/uL Hgb 11.7 L (12.0-16.0) g/dL Hct 34.8 L (37.0-47.0) % MCV 92.6 (81.0-99.0) fL MCH 31.1 H (27.0-31.0) pg MCHC 33.6 (32.0-36.0) g/dL RDW 14.6 (12.0-15.0) % Plt Count 271 (130-450) 10^3/uL MPV 9.4 (7.9-10.8) fL Neut # (Auto) 7.5 H (1.5-6.6) 10^3/uL Lymph # (Auto) 2.3 (1.5-3.5) 10^3/uL [place] # (Auto) 0.6 (0.0-1.0) 10^3/uL Eos # (Auto) 0.1 (0.0-0.7) 10^3/uL Baso # (Auto) 0.0 (0.0-0.1) 10^3/uL Absolute Nucleated RBC 0.00 x10^3/uL Nucleated RBC % 0.0 /100WBC Blood Type B POSITIVE Antibody Screen NEGATIVE
[2019-10-27] MEDS: SODIUM CHLORIDE FLUSH 0.9% 10 ML SYRINGE IVP SCH (14:03)
[2019-10-27] MEDS: ENOXAPARIN 40 MG/0.4 ML SYRINGE SUBQ SCH (14:03)
[2019-10-27] MEDS ORDERED: KETOROLAC 30 MG/ML VIAL IVP ONE (16:52)
[2019-10-27] MEDS ORDERED: MIDAZOLAM 2 MG/2 ML VIAL IVP ONE (16:52)
[2019-10-27] MEDS ORDERED: fentaNYL 100 MCG/2 ML VIAL IVP ONE (16:52)
[2019-10-27] MEDS ORDERED: MORPHINE PF 5 MG/10 ML AMP EP ONE (16:52)
[2019-10-27] MEDS ORDERED: ONDANSETRON 4 MG/2 ML VIAL IVP ONE (16:52)
[2019-10-28] MEDS: KETOROLAC 30 MG/ML VIAL IVP SCH (02:42)
[2019-10-28] MEDS: ACETAMINOPHEN 325 MG TABLET PO SCH ×3 (03:15→19:49)
--- NOTE | 2019-10-28 07:37 | PROVIDER PROGRESS NOTE ---
Subjective - Prog Note Date Prog Note Date: 10/28/19 Prog Note Time: 07:36 - Subjective Subjective: POD 1 Very comfortable, pain well controlled. Normal lochia. Ambulating, voiding, , tolerating reg diet. VSS afeb Abd soft, non-tender. Fundus firm below umbilicus. Incision D&I Extr with tr bipedal edema. Hgb 9.5 A/P Stable, doing well. Hgb 9.5 as expected. Received one dose iron sucrose, will give a second dose Continue routine care Counselled re contraceptive options; considering Nexplanon. Continue nicotine patch. Counseled to stop smoking Objective - Vital Signs/Intake & Output Vital Signs: Vital Signs x48h Temp Pulse Resp BP Pulse Ox 10/28/19 04:42 98.6 F 80 16 113/67 10/28/19 00:02 98.2 F 93 20 107/62 98 Intake & Output: Intake & Output 10/25/19 10/26/19 10/27/19 10/28/19 23:59 23:59 23:59 23:59 Intake Total 5985.000 500 Output Total 2830 800 Balance 3155.000 -300 - Lab Results Fish Bones: 10/28/19 05:25 Other Labs: Lab Results x24hrs 10/28/19 Range/Units 05:25 Hgb 9.5 L (12.0-16.0) g/dL
[2019-10-28] MEDS ORDERED: SODIUM CHLORIDE FLUSH 0.9% 10 ML SYRINGE IVP PRN (07:41)
[2019-10-28] MEDS: DOCUSATE SODIUM 100 MG CAPSULE PO SCH ×2 (08:08→20:55)
[2019-10-28] MEDS: oxyCODONE 5 MG TABLET PO PRN ×4 (08:08→20:55)
[2019-10-28] MEDS: SODIUM CHLORIDE FLUSH 0.9% 10 ML SYRINGE IVP SCH (08:14)
[2019-10-28] MEDS: ENOXAPARIN 40 MG/0.4 ML SYRINGE SUBQ SCH (10:07)
[2019-10-28] MEDS: IBUPROFEN 600 MG TABLET PO SCH ×3 (10:07→23:29)
[2019-10-28] MEDS: NICOTINE 14 MG PATCH TOP SCH (11:48)
[2019-10-29] MEDS: IBUPROFEN 600 MG TABLET PO SCH (06:25)
[2019-10-29] MEDS: oxyCODONE 5 MG TABLET PO PRN (06:25)
[2019-10-29] MEDS: ACETAMINOPHEN 325 MG TABLET PO SCH (08:18)
[2019-10-29] MEDS: ENOXAPARIN 40 MG/0.4 ML SYRINGE SUBQ SCH (08:19)
[2019-10-29] MEDS: DOCUSATE SODIUM 100 MG CAPSULE PO SCH (08:19)
[2019-10-29] MEDS: NICOTINE 14 MG PATCH TOP SCH (08:19)
[2019-10-29 08:27] VITALS: BP 123/72
[2019-10-29] MEDS ORDERED: SODIUM CHLORIDE 0.9% IV ONE (08:30)
[2019-10-29] MEDS ORDERED: FERRIC GLUCONATE IV ONE (08:30)
--- NOTE | 2019-10-29 09:56 | PROVIDER PROGRESS NOTE ---
Subjective - General Admit Date: 10/27/19 Procedure Date: 10/27/19 Post Op Days: 2 - Review of Systems Wound/Incisions: positive: Healing well, Dressing dry and intact General: positive: No symptoms, Fever All Other Systems: positive: Other (Negative except as noted) Objective - Patient Data Reviewed Vital Signs: Yes Vital Signs: Vital Signs x48h Temp Pulse Resp BP Pulse Ox 10/29/19 08:27 36.8 C 90 16 123/72 99 10/29/19 03:50 36.7 C 91 16 133/81 H Weight: Weight 10/27/19 10/28/19 10/29/19 23:59 23:59 23:59 Weight (kg) 113.398 kg Intake & Output: Intake and Output Totals x24h 10/27/19 10/28/19 10/29/19 23:59 23:59 23:59 Intake Total 5985.000 800 620 Output Total 2830 800 Balance 3155.000 0 620 - Lab Results Lab Results: 10/28/19 05:25 - Current Medications Current Medications: Current Medications Generic Name Dose Route Start Last Admin Trade Name Freq PRN Reason Stop Dose Admin Acetaminophen 650 mg 10/27/19 12:00 10/29/19 08:18 Tylenol PO 650 mg Q8H VIKAS Administration Docusate Sodium 100 mg 10/27/19 09:00 10/29/19 08:19 Colace 100mg Capsule PO 100 mg BID VIKAS Administration Enoxaparin Sodium 40 mg 10/27/19 14:00 10/29/19 08:19 Lovenox SUBQ 40 mg DAILY VIKAS Administration Fentanyl 50 mcg 10/27/19 04:40 10/27/19 05:16 Fentanyl IVP 50 mcg Q1H PRN Administration PAIN Lactated Ringer's 1,000 mls @ 150 mls/hr 10/27/19 08:00 10/27/19 21:31 Lr IV Infused .Q6H40M VIKAS Infusion Ibuprofen 600 mg 10/28/19 08:00 10/29/19 06:25 Motrin PO 600 mg Q6H VIKAS Administration Nicotine 1 patch 10/27/19 09:00 10/29/19 08:19 Nicoderm TOP 1 patch DAILY VIKAS Administration Ondansetron HCl 4 mg 10/27/19 04:40 10/27/19 05:17 Zofran Inj IVP 4 mg Q4H PRN Administration Nausea / Vomiting Oxycodone HCl 5 mg 10/27/19 07:47 10/29/19 06:25 Roxicodone PO 5 mg Q4HR PRN Administration PAIN Simethicone 80 mg 10/27/19 07:47 10/27/19 12:08 Mylicon PO 80 mg TID PRN Administration Gas Sodium Chloride 10 ml 10/27/19 09:00 10/28/19 08:14 Normal Saline Flush 0.9% IVP 10 ml 0100,0900,1700 [facility] Administration - Physical Exam Wound/Incisions: positive: Healing well, Dressing dry and intact General Appearance: positive: No acute distress, Alert Respiratory: positive: Chest non-tender, No respiratory distress, Breath sounds nml Cardiovascular: positive: Regular rate & rhythm, No murmur, No gallop Abdomen: positive: Non-tender, Nml bowel sounds Back: negative: CVA tenderness (R), CVA tenderness (L) Extremities: negative: Calf tenderness, Tiny's sign/cords Impression/Plan - Problem List Problem List: POD #2 excellent progress. Send home RTC one week Discharge medications oxycodone 5 mg # 15 Motrin 800 mg Colace 100 mg
--- NOTE | 2019-10-29 09:57 | Discharge Plan ---
Discharge Plan Problem Reviewed?: Yes Disposition: Home, Self Care Condition: Good Diet: Regular Activity Restrictions: pelvic rest 6 weeks Shower Restrictions: No Driving Restrictions: Yes (no driving while taking narcotics) No Smoking: If you smoke, Please STOP! Call for help.
--- NOTE | 2019-10-29 11:15 | Labor Flowsheet ---
Labor Flowsheet Datetime Report Generated by CPN: 10/29/2019 11:15 Datetime: 10/27/2019 05:35 PATIENT CARE Patient Position/Activity: to OR via bed Datetime: 10/27/2019 05:29 UTERINE ACTIVITY Monitor Mode: External Frequency (min): 3-4 Quality: Moderate Duration (sec): 70-100 Pattern: Normal: <= 5 Contractions in 10 Minutes Resting Tone (Palpate): Relaxed Contraction Comments: some relief after fentanyl ASSESSMENT A Monitor Mode: External US FHR Baseline Rate : 145 Variability: Moderate 6-25 bpm Accelerations: 15X15 Decelerations: Variable Category: Category II Comments: variables with contractions to 130's Datetime: 10/27/2019 05:28 VITAL SIGNS Pulse: 105 SpO2 (%): 100
--- NOTE | 2019-11-05 13:30 | DISCHARGE SUMMARY ---
Physician: Akash Hoffman MD DATE OF ADMISSION: 10/27/2019 DATE OF DISCHARGE: 10/29/2019 ADMITTING DIAGNOSES 1. A 29-year-old 4, para 2 at 38.2 weeks. 2. Spontaneous rupture of membranes. 3. Previous section x2. DISCHARGE DIAGNOSES 1. A 29-year-old 4, para 2 at 38.2 weeks. 2. Spontaneous rupture of membranes. 3. Previous section x2. PROCEDURES: Repeat low transverse section. PRESENTING HISTORY: Patient is a 29-year-old G4, P2-0-1-2 female at 38.2 weeks. She presented with a gush of fluid vaginally. She also noted contractions every 4-6 minutes. She has had 2 previous sections. Her laboratories to be group B strep positive. She presents with expectation of repeat section. LABORATORIES: On admission, hemoglobin was 11.7, hematocrit was 38.4. White count was 10.6, platelets were 271. First day postop she fell to 9.9 grams. HOSPITAL COURSE: The patient was admitted, at which time she was noted to be ruptured. For this reason, she was taken back for repeat low transverse section. At that time, she was noted to have a live male weighing 3126 grams with Apgars of 9 and 9. Her course was unremarkable. Her diet was advanced. She was placed on oral pain medications. She was discharged home on the second day . DISCHARGE MEDICATIONS 1. Oxycodone 5 mg #15. 2. Motrin 800 mg. 3. Colace 100 mg. She is instructed to follow up in the clinic. TD: 11/05/2019 13:01 [facility]
== END 2019-10-29 11:00 | disposition home or self-care (01) | DRG 788 ==
LOC: WFO 04:14 → FBP 04:15 → WFO 04:39 → FBP 04:40
PROVIDERS: ADMIT Obstetrics & Gynecology; ATTEND Obstetrics & Gynecology
PROC: 10D00Z1 Extraction of Products of Conception, Low, Open Approach (ICD-10-PCS; principal; 2019-10-27 05:30)
DX: O34.211 Maternal care for low transverse scar from previous cesarean delivery (principal); O99.824 Streptococcus B carrier state complicating childbirth; O99.02 Anemia complicating childbirth; D64.9 Anemia, unspecified; O99.334 Smoking (tobacco) complicating childbirth; F17.200 Nicotine dependence, unspecified, uncomplicated; O99.214 Obesity complicating childbirth; E66.9 Obesity, unspecified; Z3A.38 38 weeks gestation of pregnancy; Z37.0 Single live birth; Z90.79 Acquired absence of other genital organ(s)
CPT/HCPCS: 36415; 85018; 85025; 86850; 86900; 86901; 99213; A9270; J1650; J2916; J7120

== ENCOUNTER 2020-01-26 22:51 | Emergency (ER) | payer MEDICAID ==
[2020-01-26 23:01] VITALS: BP 142/88
== END 2020-01-27 00:05 | disposition left against medical advice (07) ==
LOC: ED 22:51
DX: Z53.21 Procedure and treatment not carried out due to patient leaving prior to being seen by health care provider (principal)

== ENCOUNTER 2022-02-18 18:31 | Emergency (ER) | payer MEDICAID ==
[2022-02-18 18:46] VITALS: BP 116/61
[2022-02-18 19:03] LABS: BILIRUBIN,URINE NEGATIVE (NEGATIVE); GLUCOSE, URINE (UA) NEGATIVE (NEGATIVE); KETONES,URINE (UA) NEGATIVE (NEGATIVE); LEUKOCYTE ESTERASE, URINE MODERATE (NEGATIVE); NITRITE,URINE NEGATIVE (NEGATIVE); OCCULT BLOOD,URINE TRACE-INTA (NEGATIVE); PROTEIN,URINE TRACE mg/dL (NEGATIVE); UROBILINOGEN,URINE 0.2 (NORMAL) E.U./dL (NORMAL)
[2022-02-18 19:05] LABS: BASOPHILS % (AUTO) 0.1 %; EOSINOPHILS % (AUTO) 0.3 %; HCT - HEMATOCRIT 38.1 % (37.0-47.0); HGB - HEMOGLOBIN 12.5 g/dL (12.0-16.0); LYMPHOCYTES # (AUTO) 1.5 10^3/uL (1.5-3.5); LYMPHOCYTES % (AUTO) 13.7 %; MEAN CORPUSCULAR HEMOGLOBIN 29.8 pg (27.0-31.0); MEAN CORPUSCULAR HGB CONC 32.8 g/dL (32.0-36.0); MEAN CORPUSCULAR VOLUME 90.7 fL (81.0-99.0); MEAN PLATELET VOLUME 8.9 fL (7.9-10.8); MONOCYTES # (AUTO) 0.4 10^3/uL (0.0-1.0); MONOCYTES % (AUTO) 4.1 %; NEUTROPHILS # (AUTO) 8.7 10^3/uL (1.5-6.6); NEUTROPHILS % (AUTO) 81.5 %; PLT - PLATELET COUNT 316 10^3/uL (130-450); RED CELL DISTRIBUTION WIDTH 14.3 % (12.0-15.0); WHITE BLOOD COUNT 10.7 x10^3/uL (4.8-10.8)
[2022-02-18 19:06] LABS: CLARITY,URINE CLOUDY (CLEAR); HCG UR QUAL NEGATIVE
[2022-02-18 19:17] LABS: BILIRUBIN,TOTAL 0.7 mg/dL (0.2-1.0); CALCIUM 9.5 mg/dL (8.5-10.3); CREATININE 0.8 mg/dL (0.4-1.0); TOTAL PROTEIN 7.9 g/dL (6.7-8.2)
[2022-02-18 19:19] LABS: BACTERIA,URINE Many /HPF (None Seen); MUCUS,URINE Marked Strands; RBC,URINE 0-5 /HPF (0-5); SQUAMOUS EPITHELIAL CELL,UR FEW Squamous (<= Few)
[2022-02-18] MEDS ORDERED: SULFAMETH/TRIMETH DS 800/160 MG TABLET PO STA (19:45)
[2022-02-18] MEDS ORDERED: ONDANSETRON ODT 4 MG TABLET TL STA (19:45)
[2022-02-18] MEDS ORDERED: ONDANSETRON ODT 4 MG Prepack 2 TL PRN (19:46)
--- NOTE | 2022-02-18 19:48 | ED Physician Documentation ---
PD HPI NVD - Stated complaint Stated Complaint: VOMITING,SHAKES - Chief complaint Chief Complaint: Abd Pain - History obtained from History obtained from: Patient - Additonal information Additional information: The patient comes to the emergency department chief complaint of nausea and vomiting earlier today. The patient states she did drink alcohol heavily the night before and woke up around 2:00 this morning with severe nausea and vomiting. She states she also felt shaky. The patient states that this lasted through most of the day and finally resolved when she took a shower this evening. The patient had a couple of episodes of diarrhea, as well. The patient states that she has not been directly exposed to anybody that she knows of who has gastroenteritis. No one else with the same food as her is sick. The patient states that she is feeling quite a bit better now. She is not known to be but wonders if she might be. No fevers or chills. No upper respiratory symptoms. No other complaints at this time. Review of Systems Ten Systems: 10 systems reviewed and negative Constitutional: reports: Reviewed and negative Eyes: reports: Reviewed and negative Ears: reports: Reviewed and negative Nose: reports: Reviewed and negative Throat: reports: Reviewed and negative Cardiac: reports: Reviewed and negative Respiratory: reports: Reviewed and negative GI: reports: Abdominal Pain, Nausea, Vomiting, Diarrhea : reports: Reviewed and negative Skin: reports: Reviewed and negative Musculoskeletal: reports: Reviewed and negative Neurologic: reports: Reviewed and negative Psychiatric: reports: Reviewed and negative Endocrine: reports: Reviewed and negative Immunocompromised: reports: Reviewed and negative PD PAST MEDICAL HISTORY - Past Medical History Past Medical History: No Cardiovascular: None Respiratory: None Neuro: None Endocrine/Autoimmune: None GI: None 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 : None HEENT: None Psych: None Musculoskeletal: None Derm: None - Past Surgical History Past Surgical History: Yes /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 - Present Medications Home Medications: Ambulatory Orders Medication Instructions Recorded Confirmed Ondansetron Odt [Zofran] 4 mg TL Q6H PRN #10 tablet 02/18/22 Sulfamethox/Trimeth 800/160 1 each PO BID #14 tablet 02/18/22 [Bactrim Ds 800/160] - Allergies Allergies/Adverse Reactions: Allergies Allergy/AdvReac Type Severity Reaction Status Date / Time No Known Drug Allergies Allergy Verified 02/18/22 18:46 - Social History Does the pt smoke?: Yes Smoking Status: Current every day smoker Does the pt drink ETOH?: No ETOH Use: Wine Does the pt have substance abuse?: No - Immunizations Immunizations are current?: Yes - POLST Patient has POLST: No PD ED PE NORMAL - Vitals Vital signs reviewed: Yes - General General: Alert and oriented X 3, No acute distress, Well developed/nourished - HEENT HEENT: Atraumatic, PERRL, EOMI, Moist mucous membranes - Neck Neck: Supple, no meningeal sign - Cardiac Cardiac: RRR, No murmur, Strong equal pulses - Respiratory Respiratory: No respiratory distress, Clear bilaterally - Abdomen Abdomen: Soft, Non tender, Non distended - Derm Derm: Normal color, Warm and dry, No rash - Extremities Extremities: No deformity, No edema - Neuro Neuro: Alert and oriented X 3, power operator 2-12 intact, Normal speech - Psych Psych: Normal mood, Normal affect Results - Vitals Vitals: Vital Signs - 24 hr 02/18/22 18:41 Temperature 36.6 C Heart Rate 75 Respiratory 16 Rate Blood Pressure 116/61 O2 Saturation 100 Oxygen O2 Source Room air - Labs Labs: Laboratory Tests 02/18/22 02/18/22 02/18/22 18:48 18:57 18:57 WBC 10.7 RBC 4.20 Hgb 12.5 Hct 38.1 MCV 90.7 MCH 29.8 MCHC 32.8 RDW 14.3 Plt Count 316 MPV 8.9 Neut # (Auto) 8.7 H Lymph # (Auto) 1.5 [place] # (Auto) 0.4 Eos # (Auto) 0.0 Baso # (Auto) 0.0 Absolute Nucleated RBC 0.00 Nucleated RBC % 0.0 Sodium 140 Potassium 4.0 Chloride 104 Carbon Dioxide 25 Anion Gap 11.0 BUN 12 Creatinine 0.8 Estimated GFR (MDRD) 102 Glucose 111 H Calcium 9.5 Total Bilirubin 0.7 AST 21 ALT 14 Alkaline Phosphatase 106 Total Protein 7.9 Albumin 4.0 Globulin 3.9 Albumin/Globulin Ratio 1.0 Lipase 24 Urine Color YELLOW Urine Clarity CLOUDY Urine pH 6.0 Ur Specific [place] 1.020 Urine Protein TRACE Urine Glucose (UA) NEGATIVE Urine Ketones NEGATIVE Urine Occult Blood TRACE-INTA Urine Nitrite NEGATIVE Urine Bilirubin NEGATIVE Urine Urobilinogen 0.2 (NORMAL) Ur Leukocyte Esterase MODERATE H Urine RBC 0-5 Urine WBC 11-25 H Ur Squamous Epith Cells FEW Squamous Urine Bacteria Many H Urine Mucus Marked Strands Ur Microscopic Review INDICATED Urine Culture Comments INDICATED Urine HCG, Qual NEGATIVE PD MEDICAL DECISION MAKING - ED course Complexity details: considered differential, d/w patient ED course: The patient was feeling much better by the time she came to the emergency dep artment. I did give her a dose of Zofran and a prescription for the same. We have discussed home management of symptoms, as well as the usual indications for return. Departure - Departure Disposition: Home, Self Care Clinical Impression: Vomiting Qualifiers: Vomiting type: bilious vomiting Nausea presence: with nausea Qualified Code(s): R11.14 - Bilious vomiting Urinary tract infection Qualifiers: Urinary tract infection type: acute cystitis Hematuria presence: without hematuria Qualified Code(s): N30.00 - Acute cystitis without hematuria Condition: Stable Instructions: ED UTI Cystitis Female, ED Nausea Vomiting Prescriptions: Sulfamethox/Trimeth 800/160 [Bactrim Ds 800/160] 1 each PO BID #14 tablet Ondansetron Odt [Zofran] 4 mg TL Q6H PRN #10 tablet PRN Reason: Nausea / Vomiting Comments: Your blood work looks great. Your urine shows evidence of infection, but no . The vomiting could be due to the urinary tract infection. Please take the antibiotics and antinausea medication prescribed as directed and as needed. Discharge Date/Time: 02/18/22 19:50
== END 2022-02-18 19:50 | disposition home or self-care (01) ==
LOC: ED 18:31
DX: R11.14 Bilious vomiting (principal); N30.00 Acute cystitis without hematuria; F17.200 Nicotine dependence, unspecified, uncomplicated
CPT/HCPCS: 36415; 80053; 81001; 81025; 83690; 85025; 87077; 87086; 87181; 99283; 99284; A9270; Q0162; 81003

== ENCOUNTER 2023-02-19 22:39 | Outpatient (CLI) | payer MEDICAID | END 2023-02-19 22:40 | disposition critical access hospital (66) | LOC: EMS 22:39 | DX: R07.1 Chest pain on breathing (principal); R11.2 Nausea with vomiting, unspecified; R06.4 Hyperventilation | CPT/HCPCS: A0425; A0427; A0999 ==

== ENCOUNTER 2023-02-19 22:58 | Emergency (ER) | payer MEDICAID ==
[2023-02-19 23:45] LABS: BASOPHILS % (AUTO) 0.2 %; HCT - HEMATOCRIT 36.4 % (37.0-47.0); LYMPHOCYTES # (AUTO) 1.2 10^3/uL (1.5-3.5); LYMPHOCYTES % (AUTO) 14.9 %; MEAN CORPUSCULAR HEMOGLOBIN 29.9 pg (27.0-31.0); MEAN CORPUSCULAR VOLUME 90.5 fL (81.0-99.0); MEAN PLATELET VOLUME 9.2 fL (7.9-10.8); MONOCYTES # (AUTO) 0.3 10^3/uL (0.0-1.0); MONOCYTES % (AUTO) 3.2 %; NEUTROPHILS # (AUTO) 6.7 10^3/uL (1.5-6.6); NEUTROPHILS % (AUTO) 81.5 %; PLT - PLATELET COUNT 304 10^3/uL (130-450); RED BLOOD COUNT 4.02 10^6/uL (4.20-5.40); RED CELL DISTRIBUTION WIDTH 13.2 % (12.0-15.0); WHITE BLOOD COUNT 8.3 x10^3/uL (4.8-10.8)
[2023-02-20 00:03] LABS: TROPONIN I HIGH SENSITIVITY 2.7 ng/L (2.3-14.8)
[2023-02-20 00:06] LABS: ALBUMIN 4.1 g/dL (3.2-5.5); ALBUMIN/GLOBULIN RATIO 1.2 (1.0-2.2); BILIRUBIN,TOTAL 0.8 mg/dL (0.2-1.0); CALCIUM 9.3 mg/dL (8.5-10.3); CREATININE 0.7 mg/dL (0.6-1.3); POTASSIUM 3.7 mmol/L (3.5-4.5); TOTAL PROTEIN 7.4 g/dL (6.4-8.9)
[2023-02-20] MEDS ORDERED: ONDANSETRON 4 MG/2 ML VIAL IVP STA ×2 (00:11→02:36)
[2023-02-20] MEDS ORDERED: SODIUM CHLORIDE 0.9% 1,000 ML IV STA (00:11)
--- NOTE | 2023-02-20 00:11 | XRAY Report ---
PROCEDURE: Chest 1 View X-Ray INDICATIONS: Chest pain TECHNIQUE: One view of the chest was acquired. COMPARISON: None. FINDINGS: Surgical changes and devices: None. Lungs and pleura: No pleural effusions or pneumothorax. Lungs are clear. Mediastinum: Mediastinal contours appear normal. Heart size is normal. Bones and chest wall: No suspicious bony lesions. Overlying soft tissues appear unremarkable. IMPRESSION: No acute cardiopulmonary process. Reviewed by: Danette Blount MD on 02/20/2023 12:10 AM PDT Approved by: Danette Blount MD on 02/20/2023 12:10 AM PDT Station ID: [id number]
[2023-02-20 00:38] LABS: BILIRUBIN,URINE NEGATIVE (NEGATIVE); GLUCOSE, URINE (UA) NEGATIVE (NEGATIVE); KETONES,URINE (UA) 40 mg/dL (NEGATIVE); LEUKOCYTE ESTERASE, URINE NEGATIVE (NEGATIVE); NITRITE,URINE NEGATIVE (NEGATIVE); OCCULT BLOOD,URINE NEGATIVE (NEGATIVE); PH,URINE 8.5 PH (5.0-7.5); PROTEIN,URINE NEGATIVE (NEGATIVE); UROBILINOGEN,URINE 0.2 (NORMAL) E.U./dL (NORMAL)
[2023-02-20 00:41] VITALS: O2SAT 98
[2023-02-20 00:41] LABS: CLARITY,URINE CLEAR (CLEAR); HCG UR QUAL NEGATIVE
[2023-02-20 01:34] LABS: B. PARAPERTUSSIS- RESP PCR PAN NOT DETECTED; B. PERTUSSIS- RESP PCR PANEL NOT DETECTED; C. PNEUMONIAE- RESP PCR PANEL NOT DETECTED; CORONAVIRUS 229E-RESP PCR NOT DETECTED; CORONAVIRUS HKU1-RESP PCR NOT DETECTED; CORONAVIRUS NL63-RESP PCR NOT DETECTED; CORONAVIRUS OC43-RESP PCR NOT DETECTED; HUMAN METAPNEUMOVIRUS NOT DETECTED; INFLUENZA A- RESP PCR PANEL NOT DETECTED; INFLUENZA B - RESP PCR PANEL NOT DETECTED; M. PNEUMONIAE- RESP PCR PANEL NOT DETECTED; PARAINFLUENZA VIRUS 1 NOT DETECTED; PARAINFLUENZA VIRUS 2 NOT DETECTED; PARAINFLUENZA VIRUS 3 NOT DETECTED; PARAINFLUENZA VIRUS 4 NOT DETECTED; RHINOVIRUS/ENTEROVIRUS NOT DETECTED; RSV- RESP PCR PANEL NOT DETECTED; SARS-CoV-2 -RESP PCR PANEL NOT DETECTED
[2023-02-20 03:29] VITALS: BP 130/74
--- NOTE | 2023-02-21 01:15 | ED Physician Documentation ---
History of Present Illness - Stated complaint Stated Complaint: SOA - Chief complaint Chief Complaint: MHE - History obtained from History obtained from: Patient, EMS - Additonal information Additional information: BIBA. HPI from patient and EMS. Patient with multiple c/o. Patient c/o nausea, vomiting since 2 pm. Intermittent dyspnea with rapid onset and rapid resolution, no apparent inciting event/factors. Also c/o intermittent anterior chest pressure since earlier this afternoon, again without inciting, exacerbating, or ameliorating factors. Also c/o "got the shakes", "get cold, get hot" (per patient). Has not taken her temperature at home. Denies cough. Review of Systems Constitutional: reports: Chills, Sweats. denies: Fatigue Cardiac: reports: Chest pain / pressure. denies: Palpitations, Pedal edema, Calf pain Respiratory: reports: Dyspnea. denies: Cough, Hemoptysis, Wheezing GI: reports: Nausea, Vomiting. 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 - Present Medications Home Medications: Ambulatory Orders Medication Instructions Recorded Confirmed Ondansetron Odt [Zofran] 4 mg TL Q6H PRN #10 tablet 02/18/22 Sulfamethox/Trimeth 800/160 1 each PO BID #14 tablet 02/18/22 [Bactrim Ds 800/160] Ondansetron Odt [Zofran Odt] 4 mg TL Q6H PRN #14 tablet 02/20/23 - Allergies Allergies/Adverse Reactions: Allergies Allergy/AdvReac Type Severity Reaction Status Date / Time No Known Drug Allergies Allergy Verified 02/19/23 23:17 - Social History Does the pt smoke?: Yes Smoking Status: Current every day smoker Does the pt drink ETOH?: Yes Does the pt have substance abuse?: Yes Substance Use and Type: Marijuana - Immunizations Immunizations are current?: Yes - POLST Patient has POLST: No PD ED PE NORMAL - Vitals Vital signs reviewed: Yes - General General: Alert and oriented X 3, No acute distress, Well developed/nourished - HEENT HEENT: Moist mucous membranes, Pharynx benign - Cardiac Cardiac: RRR, No murmur, No gallop, No rub - Respiratory Respiratory: No respiratory distress, Clear bilaterally - Abdomen Abdomen: Normal bowel sounds, Soft, Non tender, Non distended - Derm Derm: Normal color, Warm and dry - Extremities Extremities: No edema Results - Vitals Vitals: Oxygen O2 Source Room air - EKG (time done) No standard instances EKG releavant findings:: EKG personally interpreted by author of this note. Relevant findings are: Rate: Rate (enter#) (64) Rhythm: NSR [place]: Normal Intervals: Normal [place] QRS: Normal Ischemia: Normal ST segments - Labs Labs: Laboratory Tests 02/19/23 02/19/23 02/19/23 23:19 23:34 23:34 WBC 8.3 RBC 4.02 L Hgb 12.0 Hct 36.4 L MCV 90.5 MCH 29.9 MCHC 33.0 RDW 13.2 Plt Count 304 MPV 9.2 Neut # (Auto) 6.7 H Lymph # (Auto) 1.2 L [place] # (Auto) 0.3 Eos # (Auto) 0.0 Baso # (Auto) 0.0 Absolute Nucleated RBC 0.00 Nucleated RBC % 0.0 Sodium 139 Potassium 3.7 Chloride 108 Carbon Dioxide 21 Anion Gap 10.0 BUN 12 Creatinine 0.7 Estimated GFR (MDRD) 118 Glucose 136 H Calcium 9.3 Total Bilirubin 0.8 AST 13 ALT 10 Alkaline Phosphatase 101 Troponin I High Sens 2.7 Total Protein 7.4 Albumin 4.1 Globulin 3.3 Albumin/Globulin Ratio 1.2 Lipase 16 Urine Color YELLOW Urine Clarity CLEAR Urine pH 8.5 H Ur Specific [place] 1.015 Urine Protein NEGATIVE Urine Glucose (UA) NEGATIVE Urine Ketones 40 H Urine Occult Blood NEGATIVE Urine Nitrite NEGATIVE Urine Bilirubin NEGATIVE Urine Urobilinogen 0.2 (NORMAL) Ur Leukocyte Esterase NEGATIVE Ur Microscopic Review NOT INDICATED Urine Culture Comments NOT INDICATED Urine HCG, Qual NEGATIVE Nasal Adenovirus (PCR) Nasal B. parapertussis DNA (PCR) Nasal Coronavir 229E PCR Nasal Coronavir HKU1 PCR Nasal Coronavir NL63 PCR Nasal Coronavir OC43 PCR Nasal Enterovir/Rhinovir PCR Nasal Influenza B PCR Nasal Influenza A PCR Nasal Parainfluen 1 PCR Nasal Parainfluen 2 PCR Nasal Parainfluen 3 PCR Nasal Parainfluen 4 PCR Nasal RSV (PCR) Nasal B.pertussis DNA PCR Nasal C.pneumoniae (PCR) [place] Human Metapneumo PCR Nasal M.pneumoniae (PCR) Nasal SARS-CoV-2 (PCR) 02/20/23 00:31 WBC RBC Hgb Hct MCV MCH MCHC RDW Plt Count MPV Neut # (Auto) Lymph # (Auto) [place] # (Auto) Eos # (Auto) Baso # (Auto) Absolute Nucleated RBC Nucleated RBC % Sodium Potassium Chloride Carbon Dioxide Anion Gap BUN Creatinine Estimated GFR (MDRD) Glucose Calcium Total Bilirubin AST ALT Alkaline Phosphatase Troponin I High Sens Total Protein Albumin Globulin Albumin/Globulin Ratio Lipase Urine Color Urine Clarity Urine pH Ur Specific [place] Urine Protein Urine Glucose (UA) Urine Ketones Urine Occult Blood Urine Nitrite Urine Bilirubin Urine Urobilinogen Ur Leukocyte Esterase Ur Microscopic Review Urine Culture Comments Urine HCG, Qual Nasal Adenovirus (PCR) NOT DETECTED Nasal B. parapertussis DNA (PCR) NOT DETECTED Nasal Coronavir 229E PCR NOT DETECTED Nasal Coronavir HKU1 PCR NOT DETECTED Nasal Coronavir NL63 PCR NOT DETECTED Nasal Coronavir OC43 PCR NOT DETECTED Nasal Enterovir/Rhinovir PCR NOT DETECTED Nasal Influenza B PCR NOT DETECTED Nasal Influenza A PCR NOT DETECTED Nasal Parainfluen 1 PCR NOT DETECTED Nasal Parainfluen 2 PCR NOT DETECTED Nasal Parainfluen 3 PCR NOT DETECTED Nasal Parainfluen 4 PCR NOT DETECTED Nasal RSV (PCR) NOT DETECTED Nasal B.pertussis DNA PCR NOT DETECTED Nasal C.pneumoniae (PCR) NOT DETECTED [place] Human Metapneumo PCR NOT DETECTED Nasal M.pneumoniae (PCR) NOT DETECTED Nasal SARS-CoV-2 (PCR) NOT DETECTED - Rads (name of study) chest xray Relevant Findings:: Prelim report reviewed, See rad report PD Medical Decision Making - ED course Complexity details: reviewed results, re-evaluated patient, considered differential, d/w patient ED course: Presents with various symptoms which have been episodic since this afternoon. At times during ED stay, she suddenly calls out that she is having difficulty breathing but asks for an emesis bag; she is in no respiratory distress (even when c/o shortness of breath) and lungs are CTA bilaterally throughout ED stay. Her CBC and ER abdominal panel are normal (blood sugar 136 is insignificantly elevated for ED purposes). UA normal except 40 ketones, pH 8.5. UHCG (-). Respiratory PCR panel is negative for viruses tested. CXR is normal. hs-cTn is normal and no concerning findings on EKG. She is given 4mg IV zofran and 1 liter NS IV. She reports feeling much improved, but given 4mg zofran IV (second dose) prior to d/c for residual nausea. On reevaluation, results d/w patient. She is asleep, awakes to voice. Etiology of her symptoms is not apparent at this time. Return precautions are discussed, advised to contact her PCP in the morning to arrange for next available appointment for reevaluation. Departure - Departure Disposition: 01 Home, Self Care Clinical Impression: Nausea & vomiting Qualifiers: Vomiting type: unspecified Qualified Code(s): R11.2 - Nausea with vomiting, unspecified Dyspnea Qualifiers: Dyspnea type: unspecified Qualified Code(s): R06.00 - Dyspnea, unspecified Condition: Good Instructions: ED Nausea Vomiting Prescriptions: Ondansetron Odt [Zofran Odt] 4 mg TL Q6H PRN #14 tablet PRN Reason: Nausea / Vomiting Comments: There were no concerning or diagnostic findings on tonight's tests, including the blood tests, urinalysis, CXR, and EKG. The nasal swab was negative for the viruses that were tested for, including COVID and influenza. The cause of your symptoms is not apparent at this time. Contact your primary care provider in the morning when their office is open to arrange for next available appointment for reevaluation/follow-up. Forms: PCP List Discharge Date/Time: 02/20/23 03:30
== END 2023-02-20 03:30 | disposition home or self-care (01) ==
LOC: EDUNIT# → ED 22:58
DX: R11.2 Nausea with vomiting, unspecified (principal); R06.00 Dyspnea, unspecified; R07.9 Chest pain, unspecified; F17.200 Nicotine dependence, unspecified, uncomplicated; Z20.822 Contact with and (suspected) exposure to COVID-19
CPT/HCPCS: 36415; 80053; 81001; 81003; 81025; 83690; 84484; 85025; 87086; 87633; 93005; 99283